=== PATIENT | male | born 1950 | race African-American/Black ===

== ENCOUNTER → 2016-06-16 08:16 | Outpatient (CLI) | payer MEDICARE ==
[2014-05-19 21:54] VITALS: BMI 46.6
[~2016-06-16 08:16] MED LIST: ASPIRIN EC81 M1 PO; BENICAR HCT 40-1 TA1 PO; BETIMOL15 ML EACH EYE; COMBIVENT RESPIM4 GM INH; COUMADIN5 MG PO; HYDRALAZINE HCL25 MG PO; IPRAT-ALBUT 0.5-3 ML UPD; K-TAB10 MEQ PO; LANOXIN250 MCG PO; LASIX40 MG PO; LIPITOR10 MG PO; NITROSTAT0.4 MG SL; OMEPRAZOLE PO; TOPROL XL200 MG PO; TRIGLIDE160 MG; XALATAN 0.0052.5 ML EACH EYE
== END | disposition home or self-care (01) ==
LOC: D.RT 08:16
DX: R91.1 Solitary pulmonary nodule (principal)

== ENCOUNTER 2016-07-20 12:03 | Day surgery (SDC) | payer MEDICARE ==
[~2016-07-20] VITALS: Ht 188 cm; Wt 165.9 kg
[2016-07-20 13:13] LABS: BASOPHILS 0.3 % (0.0-2.0); HEMATOCRIT 41.4 % (42.0-54.0); HEMOGLOBIN 14.2 g/dL (13.5-17.5); IMMATURE GRANULOCYTES 0.5 % (0-5); LYMPHOCYTES 31.8 % (15-50); MCH 32.6 pg (26.0-34.0); MCHC 34.3 g/dL (31.0-37.0); MEAN PLATELET VOLUME 12.8 fL (7.4-10.4); MONOCYTES 9.2 % (2-11); NEUTROPHILS 55.2 % (40-80); PLATELET COUNT 82 10x3/uL (130-400); RBC 4.36 10x6/uL (4.20-6.10); RDW 14.8 % (11.5-14.5); WBC 3.7 10x3/uL (4.8-10.8)
[2016-07-20 13:22] LABS: CALCIUM 9.4 mg/dL (8.5-10.1); CARBON DIOXIDE 31.1 mmol/L (21.0-32.0); CREATININE - SERUM 1.4 mg/dL (0.6-1.3); POTASSIUM - SERUM 3.1 mmol/L (3.5-5.1)
[2016-07-20 13:42] VITALS: BP 178/107; Ht 188 cm; Wt 165.9 kg
--- NOTE | 2016-07-20 15:26 | NUR ---
1526 BALLOON DILATION TO 18MM X 1 MINUTE.
--- NOTE | 2016-07-20 16:27 | NUR ---
1600 BACK FROM PROCEDURE RESP EVEN AND NONLABORED AWAKE AND TALKING HOB ELEVATED FULL LIQUIDS ORDERED.
--- NOTE | 2016-07-20 17:26 | NUR ---
1700 VOIDED IV DCD CATHETER INTACT AND WENT OVER DISCHARGE INSTRUCTIONS AND VERBALLY UNDERSTANDS. 1705 TO HOME VIA W/C WITH FAMILY.
--- NOTE | 2016-07-20 17:26 | NUR ---
1630 TOLERATED FULL LIQUIDS.
--- NOTE | 2016-08-08 12:04 | OP ---
PATIENT NAME: GABRIELLE RIVAS MEDICAL RECORD: [id number] :49 LOCATION:[facility] ADMISSION DATE: SURGEON: MIRANDA GOODRICH DO DATE OF OPERATION: 07/20/2016 PROCEDURE: EGD with dilation and polypectomy. ENDOSCOPIST: Miranda Goodrich DO. SCOPE: Olympus video gastroscope. MEDICATIONS: Propofol 400 mg IV and lidocaine 100 mg IV per TIVA anesthesia. PROCEDURE INDICATIONS: Epigastric abdominal pain, history of gastric polyps, dysphagia and history of esophageal stricture, status post dilation. FINDINGS: Informed consent was given. The patient was made comfortable with the above medications. After reaching an adequate level of sedation by slow IV push, the patient was placed on his left side. The endoscope was then advanced under direct visualization through the mouth down to the second portion of the duodenum. The upper, middle and distal third of the esophagus appeared normal. There was some mild reflux esophagitis located at the GE junction and a ring just superior to this site at the GE junction. Using a 16-18 mm Olympus balloon, dilatation was performed without fluoroscopic guidance or guidewire placement. Post-procedure endoscopic appearances were satisfactory. The scope was advanced down below the cardia into the stomach and retroflexed. There was a cardiac polyp noted. There was a diminutive sliding hiatal hernia present as well. The patient was noted to have a severely J-shaped stomach. Scope was advanced down to the antrum where multiple gastric polyps were visualized. A polypectomy with a hot snare was performed on one of the larger polyps and sent for pathology. Scope was advanced beyond the pylorus into the duodenum which appeared normal and both the bulb and the second portion. Scope was then withdrawn from the patient. The patient tolerated the procedure well and there were no complications. ESTIMATED BLOOD LOSS: Less than 5 cc. IMPRESSION: 1. Mild reflux-induced esophagitis at the GE junction. 2. Esophageal ring superior to the GE junction dilated to 18 mm. 3. Multiple gastric polyps with a hot snare polypectomy performed. 4. Diminutive sliding hiatal hernia. PLAN AND RECOMMENDATIONS: 1. Barium esophagram to be performed regarding the dysphagia. 2. Follow symptoms then repeat EGD with dilation as indicated. 3. Further recommendations pending findings on pathology from the polypectomy. 4. Continue current medications and regular diet. 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
== END 2016-07-20 17:05 | disposition home or self-care (01) ==
LOC: D.OPS 12:03
PROVIDERS: Anesthesiology
DX: K21.0 Gastro-esophageal reflux disease with esophagitis (principal); K44.9 Diaphragmatic hernia without obstruction or gangrene; K22.2 Esophageal obstruction; K31.7 Polyp of stomach and duodenum

== ENCOUNTER → 2016-07-27 07:56 | Outpatient (CLI) | payer MEDICARE ==
[2016-07-20 13:42] VITALS: BMI 46.9
== END | disposition home or self-care (01) ==
LOC: D.RAD 07:56
DX: R13.10 Dysphagia, unspecified (principal)

== ENCOUNTER 2016-12-07 10:23 | Day surgery (SDC) | payer MEDICARE ==
[~2016-12-07] VITALS: Ht 188 cm; Wt 164.5 kg
--- NOTE | ~2016-12-07 | OP ---
PATIENT NAME: GABRIELLE RIVAS MEDICAL RECORD: [id number] :49 LOCATION:[facility] ADMISSION DATE: SURGEON: MIRANDA MEDINA DO DATE OF OPERATION: 12/07/2016 PROCEDURE: Colonoscopy with polypectomy. INDICATIONS FOR PROCEDURE: History of colon polyps and screening for malignant neoplasms of the colon. SCOPE: MePlease video pediatric colonoscope. MEDICATIONS: Propofol 600 mg IV per anesthesia. ESTIMATED BLOOD LOSS: Less than 3 mL. COMPLICATIONS: None. FINDINGS: Informed consent was given. The patient was made comfortable with the above medication. After reaching an adequate level of sedation by slow IV push, the patient was placed on his left side. A digital rectal examination was performed and was normal. The endoscope was then advanced under direct visualization through the rectum to the cecum with visualization of the appendiceal orifice and ileocecal valve. The scope was slowly withdrawn and mucosa was carefully examined. The prep quality on this procedure was inadequate. There were solid pieces of stool still within the colon which made suction impossible. Washing was performed where adequate, but I still could not visualize the entire mucosa of the bowel. In the ascending colon, there were 2 polyps visualized, 1 was a diminutive polyp measuring approximately 2-3 mm in size. It was fully ablated without removal. The second polyp was a large semi-pedunculated polyp measuring approximately 1.2 cm in size. It was removed using a snare cautery polypectomy in 1 piece and completely retrieved. After removal of the polyp, there was a moderate amount of bleeding, which was not stopping spontaneously. For hemostasis, 2 separate endoclips were placed along the base of the stalk. The maneuver was successful. The polyp that was removed was grabbed with a Gusman Net and the polyp was brought out with the scope while slowly withdrawing. Again, the prep was inadequate in all sections of the colon, so polyps could be missed. From what mucosa was visualized, there were no other polyps. IMPRESSION: 1. Polyps as described above removed with a hot snare and ablation. There was a moderate amount of bleeding in the ascending colon from the semi-pedunculated polyp, which was removed. Hemostasis maneuvers were performed with 2 endoclips successfully. 2. Inadequate prep. PLAN AND RECOMMENDATIONS: 1. Discharge home when recovery parameters are met. 2. Continue current diet. 3. Continue current medications while holding warfarin for a total of 3 more days before resuming. 4. Repeat colonoscopy within 6 months with an extended prep of 2 days duration as tolerated. 5. Follow up on biopsy specimen results. OPERATIVE REPORT [id number] GABRIELLE RIVAS TRANSINT:[id number] Voice Confirmation ID: [id number] DOCUMENT ID: [id number] MIRANDA MEDINA DO CC: [id number] DICTATION DATE: 12/07/16 1357 [place] CONSULTANT: 12/07/16 2328 [facility] 12/07/16 [place] [id number] [place] [address]
[2016-12-07 11:09] VITALS: BP 166/77; Ht 188 cm; Wt 164.5 kg
[2016-12-07 11:28] LABS: APTT 28.3 SECONDS (22.8-39.4); INR 1.38 (0.85-1.17); PROTIME 16.8 SECONDS (11.6-15.0)
[2016-12-07 11:30] LABS: ANION GAP 12.5 mmol/L (8-16); CALCIUM 8.9 mg/dL (8.5-10.1); CARBON DIOXIDE 27.9 mmol/L (21.0-32.0); CREATININE - SERUM 1.5 mg/dL (0.6-1.3); POTASSIUM - SERUM 3.4 mmol/L (3.5-5.1)
[2016-12-07 12:41] LABS: HEMATOCRIT 39.4 % (42.0-54.0); HEMOGLOBIN 13.6 g/dL (13.5-17.5); MCH 32.5 pg (26.0-34.0); MCHC 34.5 g/dL (31.0-37.0); MCV 94.3 fL (80.0-100.0); MEAN PLATELET VOLUME 13.1 fL (7.4-10.4); RBC 4.18 10x6/uL (4.20-6.10); RDW 14.6 % (11.5-14.5); WBC 4.6 10x3/uL (4.8-10.8)
--- NOTE | 2016-12-07 15:16 | NUR ---
1500 DISCHARGE INSTRUCTIONS DONE. NO PRESCRIPTIONS GIVEN. ESCORTED OUT BY VOLUNTEER.
== END 2016-12-07 15:00 | disposition home or self-care (01) ==
LOC: D.OPS 10:23
PROVIDERS: Anesthesiology
DX: Z12.11 Encounter for screening for malignant neoplasm of colon (principal); D12.2 Benign neoplasm of ascending colon; Z86.010 Personal history of colon polyps; Z79.01 Long term (current) use of anticoagulants; Z01.812 Encounter for preprocedural laboratory examination

== ENCOUNTER 2017-01-22 08:37 | Day surgery (SDC) | payer MEDICARE ==
[~2017-01-22] VITALS: Ht 188 cm; Wt 163.6 kg
[2017-01-22 10:57] VITALS: BP 184/104; Ht 188 cm; Wt 163.6 kg
[2017-01-22 12:11] LABS: HEMATOCRIT 40.7 % (42.0-54.0); HEMOGLOBIN 13.9 g/dL (13.5-17.5); MCH 32.9 pg (26.0-34.0); MCHC 34.2 g/dL (31.0-37.0); MCV 96.4 fL (80.0-100.0); MEAN PLATELET VOLUME 13.1 fL (7.4-10.4); RBC 4.22 10x6/uL (4.20-6.10); RDW 14.8 % (11.5-14.5); WBC 4.1 10x3/uL (4.8-10.8)
--- NOTE | 2017-01-23 07:19 | OP ---
PATIENT NAME: GABRIELLE RIVAS MEDICAL RECORD: [id number] :48 LOCATION:[facility] ADMISSION DATE: SURGEON: MIRANDA MEDINA DO DATE OF OPERATION: 01/22/2017 PROCEDURES: Colonoscopy with polypectomy. INDICATIONS FOR PROCEDURE: History of colon polyps and a previous inadequate prep on prior examination. SCOPE: Olympus video pediatric colonoscope. MEDICATIONS: Propofol 600 mg IV per anesthesia. WITHDRAWAL TIME: 26 minutes. ESTIMATED BLOOD LOSS: Minimal. COMPLICATIONS: None. FINDINGS: Informed consent was given. The patient was made comfortable with the above medication. After reaching an adequate level of sedation by slow IV push, the patient was placed on his left side. A digital rectal examination was performed and was normal. The endoscope was then advanced under direct visualization through the rectum to the cecum with visualization of the appendiceal orifice and ileocecal valve. The scope was slowly withdrawn and the mucosa was carefully examined. In the transverse colon, there were 4 separate polyps ranging in size from 2 mm to 6 mm in diameter. They were benign-appearing and sessile. Three of these polyps were removed with hot forceps in 1 piece and completely retrieved and the final polyp was removed with a hot snare in 1 piece and completely retrieved. In the descending colon, there was a single polyp which measured approximately 4 mm in diameter was benign-appearing and sessile. It was removed using hot forceps in 1 piece and completely retrieved. There were scattered, mild small-mouth diverticula present throughout the colon. Retroflexion was performed in the rectum with visualization of small nonbleeding internal hemorrhoids. The endoscope was withdrawn from the patient. The patient tolerated the procedure well and there were no complications. IMPRESSION: 1. Multiple polyps as described above removed with a hot forceps and hot snare. 2. Mild diverticulosis of the entire colon. 3. Small nonbleeding internal hemorrhoids. PLAN AND RECOMMENDATIONS: 1. Discharge home when recovery parameters are met. 2. High-fiber diet. 3. Continue current medications. 4. Recall colonoscopy in 2 years, pending pathology results. TRANSINT:[id number] Voice Confirmation ID: [id number] DOCUMENT ID: [id number] OPERATIVE REPORT [id number] GABRIELLE RIVAS MIRANDA MEDINA DO at 0719 CC: [id number] DICTATION DATE: 01/22/17 1323 HOME HEALTH AID: [id number] [facility] 01/22/17 [place] [id number] [place] [id number]
== END 2017-01-22 14:16 | disposition home or self-care (01) ==
LOC: D.OPS 08:37
PROVIDERS: Anesthesiology
DX: D12.3 Benign neoplasm of transverse colon (principal); D12.4 Benign neoplasm of descending colon; K64.8 Other hemorrhoids; I10 Essential (primary) hypertension; K57.30 Diverticulosis of large intestine without perforation or abscess without bleeding; G47.30 Sleep apnea, unspecified; K44.9 Diaphragmatic hernia without obstruction or gangrene; K21.9 Gastro-esophageal reflux disease without esophagitis; I48.91 Unspecified atrial fibrillation; Z01.812 Encounter for preprocedural laboratory examination

== ENCOUNTER → 2018-02-19 09:42 | Outpatient (CLI) | payer MEDICARE ==
[2017-01-22 10:57] VITALS: BMI 46.3
== END | disposition home or self-care (01) ==
LOC: D.RT 02-07 14:00
DX: J44.9 Chronic obstructive pulmonary disease, unspecified (principal)

== ENCOUNTER → 2019-04-04 08:10 | Outpatient (CLI) | payer MEDICARE ==
[2017-01-22 10:57] VITALS: BMI 46.3
== END | disposition home or self-care (01) ==
LOC: D.RAD 08:10 → D.RT 09:00
PROVIDERS: ATTEND Internal Medicine Pulmonary Disease
DX: J45.909 Unspecified asthma, uncomplicated (principal)